=== PATIENT | female | born 1945 | race Caucasian/White ===

== ENCOUNTER 2016-10-27 22:16 | Emergency (ER) | payer OTHER ==
[2016-10-27 23:37] VITALS: BP 120/74
== END 2016-10-27 23:38 | disposition home or self-care (01) ==
LOC: ED 22:16
DX: H60.91 Unspecified otitis externa, right ear (principal); I10 Essential (primary) hypertension; E11.9 Type 2 diabetes mellitus without complications; E78.5 Hyperlipidemia, unspecified; Z79.899 Other long term (current) drug therapy

== ENCOUNTER 2017-05-15 20:11 | Inpatient (IN) | payer OTHER ==
[~2017-05-15] VITALS: Ht 157.5 cm; Wt 62.4 kg
[2017-05-15 22:00] LABS: BASOPHIL % 0.3 % (0-2); PLATELET COUNT 247 x10^3mcL (130-400); RED CELL DISTRIBUTION WIDTH 13.9 % (11.5-14.5)
[2017-05-15 22:08] LABS: ALKALINE PHOSPHATASE 54 U/L (46-116); ALT/SGPT 22 U/L (14-59); AST/SGOT 18 U/L (15-37); BILIRUBIN TOTAL 0.35 mg/dL (0.20-1.00); CALCIUM 9.1 mg/dL (8.5-10.1); CARBON DIOXIDE 28.1 mmol/L (21-32); CHLORIDE SERUM 103 mmol/L (98-107); CREATININE SERUM 0.8 mg/dL (0.6-1.0); GFR1 > 60 mL/min; GLUCOSE SERUM 104 mg/dL (74-106); LIPASE 160 IU/L (73-393); SODIUM SERUM 141 mmol/L (136-145)
[2017-05-15 22:10] LABS: TOTAL PROTEIN, SERUM 8.7 g/dL (6.4-8.2)
[2017-05-15 22:11] LABS: POTASSIUM SERUM 2.9 mmol/L (3.5-5.1)
[2017-05-15] MEDS ORDERED: HCTZ/LISINOPRIL1 TA2 PO (23:35)
[2017-05-15] MEDS ORDERED: CARVEDILOL25 M1 PO (23:36)
[2017-05-15] MEDS ORDERED: BAYER ASPIRIN R81 MG (23:37)
[2017-05-15] MEDS ORDERED: NIFEDIPINE ER30 M1 (23:37)
[2017-05-15] MEDS ORDERED: LANTUS SOLOS100 U/M1 (23:38)
[2017-05-15] MEDS ORDERED: PRAVASTATIN SOD40 M1 (23:38)
[2017-05-15] MEDS ORDERED: NOVI SQ (23:39)
[2017-05-15] MEDS ORDERED: ALENDRONATE SOD70 M2 PO (23:41)
[2017-05-15 23:46] LABS: MAGNESIUM 1.6 mg/dL (1.8-2.4); PHOSPHOROUS 3.4 mg/dL (2.5-4.9)
[2017-05-15 23:55] LABS: T3 TOTAL 1.15 ng/mL
[2017-05-15 23:57] LABS: FREE T4 1.17 ng/dL (0.76-1.46); FREE THYROXINE INDEX 3.7 ug/dL (1.4-4.5); T4(THYROXINE) 10.8 ug/dL (4.7-13.3)
[2017-05-16 00:17] VITALS: BP 138/73
[2017-05-16 00:25] VITALS: Ht 157.5 cm; Wt 62.4 kg
[2017-05-16 00:28] LABS: microscopic required? YES; urine erythrocyte NEGATIVE (NEGATIVE)
[2017-05-16 05:33] VITALS: BP 130/69
[2017-05-16 07:11] LABS: PLATELET COUNT 211 x10^3mcL (130-400); RED CELL DISTRIBUTION WIDTH 13.5 % (11.5-14.5)
[2017-05-16 07:13] LABS: BASOPHIL % 0 % (0-2)
[2017-05-16 07:15] LABS: CARBON DIOXIDE 26.6 mmol/L (21-32); CHLORIDE SERUM 105 mmol/L (98-107); CREATININE SERUM 0.7 mg/dL (0.6-1.0); GFR1 > 60 mL/min; GLUCOSE SERUM 252 mg/dL (74-106); MAGNESIUM 2.4 mg/dL (1.8-2.4); POTASSIUM SERUM 3.4 mmol/L (3.5-5.1); SODIUM SERUM 139 mmol/L (136-145)
[2017-05-16 09:58] VITALS: BP 139/70
[2017-05-16] MEDS ORDERED: ADA30 PO (11:57)
[2017-05-16 13:43] VITALS: BP 142/69
[2017-05-16 14:14] VITALS: BP 130/65
== END 2017-05-16 15:22 | disposition home or self-care (01) | DRG 916 ==
LOC: ED 20:11 → DU 23:17
PROVIDERS: Emergency Medicine; ADMIT Family Medicine
DX: T78.3XXA Angioneurotic edema, initial encounter (principal); T46.4X5A Adverse effect of angiotensin-converting-enzyme inhibitors, initial encounter; E87.6 Hypokalemia; E83.42 Hypomagnesemia; E11.65 Type 2 diabetes mellitus with hyperglycemia; I10 Essential (primary) hypertension; E78.5 Hyperlipidemia, unspecified; Z68.25 Body mass index [BMI] 25.0-25.9, adult; Z79.82 Long term (current) use of aspirin; Z79.4 Long term (current) use of insulin; Y92.009 Unspecified place in unspecified non-institutional (private) residence as the place of occurrence of the external cause
CPT/HCPCS: 84439; J0696; J1200; J1815; J2930; J3475; J3480; J3490; J7030; J7040; J7042; Q0092